=== PATIENT | male | born 1945 | race Caucasian/White ===

== ENCOUNTER 2023-01-10 09:41 | Inpatient (IN) | payer MEDICARE, BC ==
[~2023-01-10] VITALS: Ht 167.6 cm; Wt 64.3 kg
[2023-01-10 10:50] LABS: Urine Bacteria NONE SEEN /hpf (None Seen); Urine Blood Negative /uL (Negative); Urine Hyaline Cast FEW /lpf (0 - 2); Urine Specific Gravity 1.012 (1.001-1.035); Urine WBC 4 /hpf (0 - 3)
[2023-01-10 10:55] LABS: Basophils # (auto) 0.1 10 ^3/uL (0-0.2); Basophils % (auto) 1.2 % (0.0-2.0); Eosinophils # (auto) 0.1 10 ^3/uL (0-0.8); Eosinophils % (auto) 1.7 % (0.0-7.0); Hematocrit 27.5 % (41.0-53.0); Hemoglobin 8.1 g/dL (13.5-17.5); Lymphocytes # (auto) 0.7 10 ^3/uL (0.4-5.4); Lymphocytes % (auto) 9.3 % (10.0-50.0); Mean Corpuscular Hemoglobin 19.5 pg (28.0-32.0); Mean Corpuscular Hgb Conc. 29.5 g/dL (32.0-36.0); Mean Corpuscular Volume 66.1 fL (80.0-100.0); Monocytes # (auto) 0.7 10 ^3/uL (0-1.3); Monocytes % (auto) 9.7 % (0.0-12.0); Neutrophils # (auto) 5.9 10 ^3/uL (1.6-8.6); Neutrophils % (auto) 78.1 % (37.0-80.0); Red Blood Cells 4.15 10^6/uL (4.5-5.90); White Blood Cell 7.5 10^3/uL (4.4-10.8)
[2023-01-10] MEDS ORDERED: FUROSEMIDE 20 MG/2 ML VIAL IV ONE ×2 (11:00→11:15)
[2023-01-10 11:06] LABS: INR 1.18 (0.9-1.15)
[2023-01-10 11:14] LABS: Potassium 4.2 mmol/L (3.5-5.1)
[2023-01-10] MEDS ORDERED: AZITHROMYCIN 500MG/ 250ML 250 ML IV ONE (11:15)
[2023-01-10] MEDS ORDERED: MORPHINE SULFATE INJ 2 MG/ml SYRG IV PRN (11:15)
[2023-01-10] MEDS ORDERED: NITROGLYCERIN 0.4 MG SL TAB SL PRN (11:15)
[2023-01-10] MEDS ORDERED: cefTRIAXone 1GM/50ML D5W 50 ML IV ONE (11:15)
[2023-01-10 11:20] LABS: Albumin 2.8 g/dL (3.4-5.0); BUN/Creatinine Ratio 16.4 (10.0-20.0); Bilirubin, Total 0.6 mg/dL (0.2-1.0); Calcium 8.8 mg/dL (8.5-10.1); Magnesium 1.9 mg/dL (1.6-2.6); Total Protein 6.8 g/dL (6.4-8.2)
[2023-01-10 12:12] LABS: Cholesterol 121 mg/dL (< 200)
[2023-01-10 12:15] LABS: HDL Cholesterol 49 mg/dL (40-59); LDL Cholesterol 73 mg/dL (< 100); Triglycerides 59 mg/dL (< 150)
[2023-01-10] MEDS ORDERED: ASPirin 325 MG TAB PO ONE (13:30)
[2023-01-10 14:02] LABS: % Iron Saturation 3.3 % (20-55)
[2023-01-10 14:04] LABS: Folate (Folic Acid) 23.21 ng/mL (5.38-24)
[2023-01-10] MEDS ORDERED: hydrALAZINE HCL 20 MG/ML VL IV PRN (17:00)
[2023-01-10] MEDS: DOBUTamine 1000MCG/ML 250 ML IV SCH (17:19)
[2023-01-10] MEDS: FUROSEMIDE 20 MG/2 ML VIAL IV SCH (18:16)
[2023-01-10] MEDS: CARVEDILOL 3.125 MG TAB PO SCH (22:20)
[2023-01-10] MEDS: SACUBITRIL-VALSARTAN 24mg/26mg TAB PO SCH (22:20)
[2023-01-10] MEDS ORDERED: TEMAZEPAM 15 MG CAP PO ONE (23:15)
[2023-01-11] MEDS: ACETAMINOPHEN 325 MG TAB PO PRN ×2 (05:09→14:20)
[2023-01-11] MEDS: FUROSEMIDE 20 MG/2 ML VIAL IV SCH ×2 (05:37→18:50)
[2023-01-11 05:43] LABS: Basophils # (auto) 0.1 10 ^3/uL (0-0.2); Eosinophils # (auto) 0.2 10 ^3/uL (0-0.8); Hemoglobin 8.1 g/dL (13.5-17.5); Lymphocytes # (auto) 0.8 10 ^3/uL (0.4-5.4); Mean Corpuscular Hemoglobin 19.6 pg (28.0-32.0); Monocytes # (auto) 0.7 10 ^3/uL (0-1.3); Nucleated Red Blood Cells % 0.1 %
[2023-01-11 05:46] LABS: Basophils % (auto) 1.1 % (0.0-2.0); Eosinophils % (auto) 2.8 % (0.0-7.0); Hematocrit 26.5 % (41.0-53.0); Mean Corpuscular Hgb Conc. 30.6 g/dL (32.0-36.0); Mean Corpuscular Volume 64.2 fL (80.0-100.0); Monocytes % (auto) 10.5 % (0.0-12.0); Neutrophils # (auto) 4.9 10 ^3/uL (1.6-8.6); Neutrophils % (auto) 73.6 % (37.0-80.0); Red Blood Cells 4.13 10^6/uL (4.5-5.90); Red Cell Distribution Width 18.2 % (11.8-14.3); White Blood Cell 6.6 10^3/uL (4.4-10.8)
[2023-01-11] MEDS: EMPAGLIFLOZIN 10 MG TAB PO SCH (06:50)
[2023-01-11] MEDS ORDERED: cefTRIAXone 1GM/50ML D5W 50 ML IV SCH (09:00)
[2023-01-11] MEDS ORDERED: FUROSEMIDE 20 MG/2 ML VIAL IV SCH (10:00)
[2023-01-11] MEDS ORDERED: ENOXAPARIN SOD 40 MG/0.4 ML SYRINGE SC SCH (10:00)
[2023-01-11] MEDS ORDERED: AZITHROMYCIN 500MG/ 250ML 250 ML IV SCH (10:00)
[2023-01-11] MEDS: ASPirin 81 mg TAB PO SCH (10:25)
[2023-01-11] MEDS: SACUBITRIL-VALSARTAN 24mg/26mg TAB PO SCH ×2 (10:26→23:17)
[2023-01-11] MEDS: CARVEDILOL 3.125 MG TAB PO SCH ×2 (10:26→23:16)
[2023-01-11 12:44] LABS: Calcium 8.6 mg/dL (8.5-10.1); Potassium 3.7 mmol/L (3.5-5.1)
[2023-01-11 12:47] LABS: BUN/Creatinine Ratio 15.3 (10.0-20.0)
[2023-01-11] MEDS: DOBUTamine 1000MCG/ML 250 ML IV SCH (16:47)
[2023-01-11] MEDS ORDERED: DOXYCYCLINE 100 MG TAB/CAP PO SCH (22:00)
[2023-01-11] MEDS ORDERED: TEMAZEPAM 15 MG CAP PO ONE (23:15)
[2023-01-11 23:51] VITALS: BP 129/62
[2023-01-12] VITALS (11 sets, daily range): BP systolic 99–128; BP diastolic 41–97
[2023-01-12 06:18] LABS: Hematocrit 23.9 % (41.0-53.0); Nucleated Red Blood Cells % 0.1 %; White Blood Cell 5.9 10^3/uL (4.4-10.8)
[2023-01-12 06:21] LABS: Basophils # (auto) 0.1 10 ^3/uL (0-0.2); Basophils % (auto) 1.3 % (0.0-2.0); Eosinophils # (auto) 0.4 10 ^3/uL (0-0.8); Eosinophils % (auto) 5.9 % (0.0-7.0); Hemoglobin 7.8 g/dL (13.5-17.5); Lymphocytes # (auto) 0.8 10 ^3/uL (0.4-5.4); Lymphocytes % (auto) 12.9 % (10.0-50.0); Mean Corpuscular Hemoglobin 20.9 pg (28.0-32.0); Mean Corpuscular Hgb Conc. 32.5 g/dL (32.0-36.0); Mean Corpuscular Volume 64.2 fL (80.0-100.0); Monocytes # (auto) 0.8 10 ^3/uL (0-1.3); Monocytes % (auto) 14.4 % (0.0-12.0); Neutrophils # (auto) 3.9 10 ^3/uL (1.6-8.6); Neutrophils % (auto) 65.5 % (37.0-80.0); Red Blood Cells 3.72 10^6/uL (4.5-5.90); Red Cell Distribution Width 18.1 % (11.8-14.3)
[2023-01-12 06:22] LABS: INR 1.13 (0.9-1.15); Partial Thromboplastin Time 31.8 sec (24.6-33.4)
[2023-01-12 06:35] LABS: BUN/Creatinine Ratio 18.3 (10.0-20.0); Calcium 8.2 mg/dL (8.5-10.1); Potassium 3.3 mmol/L (3.5-5.1)
[2023-01-12] MEDS: EMPAGLIFLOZIN 10 MG TAB PO SCH (06:38)
[2023-01-12] MEDS: FUROSEMIDE 20 MG/2 ML VIAL IV SCH (06:38)
[2023-01-12] MEDS ORDERED: POTASSIUM EFFERVESENT TAB 25 MEQ PO ONE (10:00)
[2023-01-12] MEDS: ASPirin 81 mg TAB PO SCH (10:35)
[2023-01-12] MEDS ORDERED: HEPARIN SODIUM (PORCINE) 5000 UNITS/ML 1ML VIAL ONE (11:53)
[2023-01-12] MEDS ORDERED: VERAPAMIL 2.5MG/ML INJ 2ML VIAL IV ONE (11:53)
[2023-01-12] MEDS ORDERED: ANGIOMAX 250 MG VIAL IV ONE (11:53)
[2023-01-12] MEDS ORDERED: SODIUM CHL 0.9% 0 ML ONE (11:54)
[2023-01-12] MEDS ORDERED: MIDAZOLAM HCL 2MG/2ML 2ml VIAL (1mg/ml) ONE (11:54)
[2023-01-12] MEDS ORDERED: fentaNYL CITRATE 100 MCG/2 ML VL ONE (11:54)
[2023-01-12] MEDS ORDERED: LIDOCAINE 2%HCL (LOCAL ANESTH.) INJ 10ml MDV ONE (11:56)
[2023-01-12] MEDS ORDERED: IODIXANOL 320MG/ML 100ML BTL IV ONE (11:57)
[2023-01-12] MEDS ORDERED: PIPERACILLIN-TAZOB 3.375GM 100 ML IV SCH ×2 (14:00→17:00)
[2023-01-12] MEDS ORDERED: HEPARIN SODIUM (PORCINE) 5000 UNITS/ML 1ML VIAL IV ONE (17:00)
[2023-01-12] MEDS ORDERED: HEPARIN DRIP/D5W 100UNITS/ML 250 ML IV SCH ×2 (17:00→18:45)
[2023-01-12] MEDS: DOBUTamine 1000MCG/ML 250 ML IV SCH (17:36)
[2023-01-12] MEDS ORDERED: FUROSEMIDE 40 MG/4 ML VIAL IV SCH (18:00)
[2023-01-12 18:23] LABS: Basophils # (auto) 0 10 ^3/uL (0-0.2); Basophils % (auto) 0.3 % (0.0-2.0); Eosinophils # (auto) 0.2 10 ^3/uL (0-0.8); Hematocrit 25.4 % (41.0-53.0); Hemoglobin 7.6 g/dL (13.5-17.5); Monocytes # (auto) 0.9 10 ^3/uL (0-1.3); Monocytes % (auto) 15.3 % (0.0-12.0); Neutrophils # (auto) 3.7 10 ^3/uL (1.6-8.6); Neutrophils % (auto) 65.5 % (37.0-80.0); Nucleated Red Blood Cells % 0.1 %
[2023-01-12 18:24] LABS: Lymphocytes # (auto) 0.8 10 ^3/uL (0.4-5.4); Lymphocytes % (auto) 14.9 % (10.0-50.0); Mean Corpuscular Hemoglobin 19.5 pg (28.0-32.0); Mean Corpuscular Hgb Conc. 30.1 g/dL (32.0-36.0); Mean Corpuscular Volume 64.7 fL (80.0-100.0); Red Blood Cells 3.92 10^6/uL (4.5-5.90); Red Cell Distribution Width 18.1 % (11.8-14.3); White Blood Cell 5.6 10^3/uL (4.4-10.8)
[2023-01-12 18:40] LABS: INR 1.14 (0.9-1.15); Partial Thromboplastin Time 29.2 sec (24.6-33.4)
[2023-01-12] MEDS ORDERED: ATORVASTATIN 20 MG TAB PO SCH (22:00)
== END 2023-01-12 21:40 | disposition short-term general hospital (02) | DRG 280 ==
LOC: ER 09:41 → TELE 11:17 → TELE-EAST 01-11 22:20
PROVIDERS: ADMIT Nurse Practitioner Family; ATTEND Nurse Practitioner Acute Care
PROC: 4A023N7 Measurement of Cardiac Sampling and Pressure, Left Heart, Percutaneous Approach (ICD-10-PCS; principal; 2023-01-12)
PROC: B211YZZ Fluoroscopy of Multiple Coronary Arteries using Other Contrast (ICD-10-PCS; 2023-01-12)
PROC: B215YZZ Fluoroscopy of Left Heart using Other Contrast (ICD-10-PCS; 2023-01-12)
DX: I21.4 Non-ST elevation (NSTEMI) myocardial infarction (principal); I50.41 Acute combined systolic (congestive) and diastolic (congestive) heart failure; J18.9 Pneumonia, unspecified organism; J96.01 Acute respiratory failure with hypoxia; I42.6 Alcoholic cardiomyopathy; I25.10 Atherosclerotic heart disease of native coronary artery without angina pectoris; D50.9 Iron deficiency anemia, unspecified; I11.0 Hypertensive heart disease with heart failure; I27.20 Pulmonary hypertension, unspecified; R73.03 Prediabetes; D63.8 Anemia in other chronic diseases classified elsewhere; F10.10 Alcohol abuse, uncomplicated; F17.200 Nicotine dependence, unspecified, uncomplicated; I50.82 Biventricular heart failure; Z82.49 Family history of ischemic heart disease and other diseases of the circulatory system; Z20.822 Contact with and (suspected) exposure to COVID-19
CPT/HCPCS: 36415; 71045; 80048; 80053; 80061; 81001; 82607; 82746; 83036; 83540; 83550; 83735; 83880; 84443; 84484; 85025; 85610; 85730; 87426; 87804; 93005; 93306; 93458; 97110; 97116; 97163; 99291; G0378; J0696; J2001; J2250; J2543; Q9967

== ENCOUNTER 2024-03-29 07:28 | Inpatient (IN) | payer MEDICARE, BC ==
[~2024-03-29] VITALS: Ht 170.2 cm; Wt 48.7 kg
[2024-03-29] VITALS (14 sets, daily range): BP systolic 96–132; BP diastolic 48–94; PULSE 82–107; RESP 14–30; TEMP 94.5–98.1
[2024-03-29] MEDS: DEXTROSE 50% SYRINGE 50 ML IV ONE (07:43)
[2024-03-29] MEDS: DEXTROSE (50%) 50ML SYRG IV ONE (07:45)
[2024-03-29] MEDS: SODIUM CHLORIDE 0.9% 2,000 ML IV ONE (08:18)
[2024-03-29 09:02] LABS: Basophils # (auto) 0 10 ^3/uL (0-0.2); Basophils % (auto) 0.1 % (0.0-2.0); Eosinophils # (auto) 0 10 ^3/uL (0-0.8); Monocytes # (auto) 0 10 ^3/uL (0-1.3); Nucleated Red Blood Cells % 0.1 %
[2024-03-29 09:04] LABS: Eosinophils % (auto) 0.7 % (0.0-7.0); Hematocrit 12.9 % (41.0-53.0); Lymphocytes # (auto) 0 10 ^3/uL (0.4-5.4); Mean Corpuscular Hemoglobin 18.6 pg (28.0-32.0); Mean Corpuscular Hgb Conc. 28.2 g/dL (32.0-36.0); Mean Corpuscular Volume 65.9 fL (80.0-100.0); Monocytes % (auto) 0.2 % (0.0-12.0); Neutrophils # (auto) 4.5 10 ^3/uL (1.6-8.6); Red Blood Cells 1.95 10^6/uL (4.5-5.90); White Blood Cell 4.6 10^3/uL (4.4-10.8)
[2024-03-29 09:07] LABS: Hemoglobin 3.6 g/dL (13.5-17.5); Red Cell Distribution Width 26.1 % (11.8-14.3)
[2024-03-29 09:20] LABS: Alanine Aminotransferase 25 U/L (7-40); Albumin 2.6 g/dL (3.2-4.8); Alkaline Phosphatase 154 U/L (46-116); Anion Gap 19.00001 (5-15); Aspartate Aminotransferase 112 U/L (13-40); BUN/Creatinine Ratio 19.3 (10.0-20.0); Chloride 106 mmol/L (98-107); Glucose 368 mg/dL (74-106); Magnesium 1.9 mg/dL (1.6-2.6); Potassium 4.5 mmol/L (3.5-5.1); Sodium 135 mmol/L (136-145); Total Protein 5.3 g/dL (5.7-8.2)
[2024-03-29 09:21] LABS: Bilirubin, Total 0.4 mg/dL (0.2-1.0)
[2024-03-29 09:24] LABS: Ovalocytes FEW
[2024-03-29 09:25] LABS: Anisocytosis Moderate; Blood Urea Nitrogen 89 mg/dL (9-23); Carbon Dioxide < 10 mmol/L (20-30); Hypochromia Marked; Lactic Acid w/Reflex 4.1 mmol/L (0.4-2.0); Platelet Estimate Decreased; Tear Drop Cells FEW
[2024-03-29] MEDS: cefTRIAXone 1GM/50ML D5W 50 ML IV ONE (09:54)
[2024-03-29] MEDS: DOPamine 1600MCG/ML D5W 250 ML IV SCH (10:55)
[2024-03-29] MEDS: DOPamine 1600MCG/ML D5W 250 ML IV ONE (10:59)
[2024-03-29] MEDS: NOREPINEPHRINE 8 MG/250ML KIT 250 ML IV SCH (11:30)
[2024-03-29] MEDS: NOREPINEPHRINE 8 MG/250ML KIT 250 ML IV ONE (11:39)
[2024-03-29] MEDS ORDERED: INSULIN LANTUS (GLARGINE) 1 /0.01ml (100units/ml) SC ONE (13:15)
[2024-03-29] MEDS: ACCU-CHEK COMFORT CURVE STRIP VI SCH (13:30)
[2024-03-29 13:39] LABS: Base Excess -18.6 mmol/L (-2.0-2.0)
[2024-03-29] MEDS: INSULIN DRIP 100 UNIT/100ML 100 ML IV SCH (14:07)
[2024-03-29 14:14] LABS: Red Blood Cells 2.83 10^6/uL (4.5-5.90)
[2024-03-29 14:15] LABS: Hematocrit 21.8 % (41.0-53.0); Mean Corpuscular Hemoglobin 22.8 pg (28.0-32.0); Mean Corpuscular Hgb Conc. 29.6 g/dL (32.0-36.0); White Blood Cell 13.2 10^3/uL (4.4-10.8)
[2024-03-29 14:18] LABS: Red Cell Distribution Width 31.1 % (11.8-14.3)
[2024-03-29 14:20] LABS: Hemoglobin 6.5 g/dL (13.5-17.5)
[2024-03-29 14:23] LABS: Basophils % (manual) 0 (0.0-2.0); Blast Cells 0; Eosinophils % (manual) 0 (0-7); Metamyelocytes % 0; Myelocytes % 0; Promyelocytes % 0; Reactive Lymphocytes 0
[2024-03-29 14:38] LABS: BUN/Creatinine Ratio 20.6 (10.0-20.0)
[2024-03-29 14:39] LABS: Magnesium 1.8 mg/dL (1.6-2.6)
[2024-03-29 14:40] LABS: Band Neutrophils % (manual) 4; Lymphocytes % (manual) 2 (10.0-50.0); Monocytes % (manual) 1 (0-12); Phosphorus 9.2 mg/dL (2.4-5.1)
[2024-03-29 14:41] LABS: Anisocytosis Moderate
[2024-03-29 14:42] LABS: Hypochromia Moderate; Platelet Estimate Adequate; Tear Drop Cells FEW
[2024-03-29] MEDS: DEXTROSE 10% 1,000 ML IV ONE ×2 (14:45→15:03)
[2024-03-29] MEDS: FUROSEMIDE 20 MG/2 ML VIAL IV ONE (15:14)
[2024-03-29] MEDS: PIPERACILLIN-TAZOB 3.375GM 100 ML IV ONE (15:14)
[2024-03-29 15:18] LABS: Chloride 113 mmol/L (98-107); Sodium 142 mmol/L (136-145)
[2024-03-29 15:19] LABS: Anion Gap 19.00001 (5-15); Blood Urea Nitrogen 91 mg/dL (9-23); Calcium 6.9 mg/dL (8.5-10.1); Carbon Dioxide < 10 mmol/L (20-30); Glucose 23 mg/dL (74-106)
[2024-03-29] MEDS ORDERED: VANCOMYCIN PER PHARMACY 0 MG IV SCH (15:30)
[2024-03-29] MEDS ORDERED: MORPHINE SULFATE INJ 2 MG/ml SYRG IV PRN (15:45)
[2024-03-29] MEDS ORDERED: NITROGLYCERIN 0.4 MG SL TAB SL PRN (15:45)
[2024-03-29 16:15] LABS: % Iron Saturation 5.9 % (20-55)
[2024-03-29] MEDS: PANTOPRAZOLE 40 MG/10 ML VIAL INJ IV ONE (16:41)
[2024-03-29] MEDS: SODIUM BICARB 8.4% 50Meq/50ml SYR Vial IV ONE ×2 (16:41→17:26)
[2024-03-29] MEDS: SODIUM BICARB 50mEq/50ml Vial 150 ML in D5W 5% 1,000 ML IV SCH (16:45)
[2024-03-29] MEDS: SODIUM CHLORIDE 0.9% 1,000 ML IV SCH ×2 (16:53→17:15)
[2024-03-29] MEDS: SOD CHL 0.45% 1,000 ML IV SCH ×2 (17:23)
[2024-03-29] MEDS: VANCOMYCIN 750mg/150ml 150 ML IV ONE (17:29)
[2024-03-29] MEDS: VASOPRESSIN 20 UNITS in SODIUM CHL 0.9% 99 ML IV SCH (17:33)
[2024-03-29] MEDS: DEXTROSE (50%) 50ML SYRG IV PRN (18:02)
[2024-03-29 18:09] LABS: Urine Bacteria None Seen /hpf (None Seen); Urine WBC None Seen /hpf (0 - 3)
[2024-03-29] MEDS: CEFEPIME 1GM/ 50ML 50 ML IV ONE (18:40)
[2024-03-29 18:48] LABS: Urine Blood 1+ /uL (Negative); Urine Clarity Ex.Turbid (Clear); Urine Color Dark-Brown (Yellow); Urine Protein, UAD 2+ (Negative); Urine Specific Gravity 1.014 (1.001-1.035); Urine Urobilinogen Normal (Negative); Urine pH 7.5 (5.0-9.0)
[2024-03-29] MEDS ORDERED: SODIUM CHLORIDE 0.9% 1,000 ML IV SCH (19:15)
[2024-03-29 21:21] LABS: Chloride 114 mmol/L (98-107); Potassium 5.4 mmol/L (3.5-5.1); Sodium 143 mmol/L (136-145)
[2024-03-29 21:23] LABS: Anion Gap 19.00001 (5-15)
[2024-03-29 21:24] LABS: Calcium 6.8 mg/dL (8.7-10.4)
[2024-03-29 21:27] LABS: Carbon Dioxide < 10 mmol/L (20-30)
[2024-03-29 21:29] LABS: BUN/Creatinine Ratio 19.1 (10.0-20.0); Glucose 99 mg/dL (74-106)
[2024-03-29 21:32] LABS: Blood Urea Nitrogen 85 mg/dL (9-23)
[2024-03-30] VITALS (29 sets, daily range): BP systolic 83–136; BP diastolic 45–82; PULSE 78–102; RESP 17–29; TEMP 94.6–98.2; O2SAT 61–98
[2024-03-30 00:39] LABS: Hematocrit 31.8 % (41.0-53.0); Hemoglobin 9.4 g/dL (13.5-17.5)
[2024-03-30 01:01] LABS: Lactic Acid w/Reflex 12.4 mmol/L (0.4-2.0)
[2024-03-30 01:29] LABS: Anion Gap 20.00001 (5-15); Chloride 113 mmol/L (98-107); Sodium 143 mmol/L (136-145)
[2024-03-30 01:30] LABS: Calcium 6.8 mg/dL (8.7-10.4)
[2024-03-30 01:35] LABS: BUN/Creatinine Ratio 15.4 (10.0-20.0); Glucose 117 mg/dL (74-106)
[2024-03-30 01:36] LABS: Blood Urea Nitrogen 69 mg/dL (9-23)
[2024-03-30 01:37] LABS: Carbon Dioxide < 10 mmol/L (20-30); Potassium 5.9 mmol/L (3.5-5.1)
[2024-03-30] MEDS: SODIUM BICARB 8.4% 50Meq/50ml SYR Vial IV ONE ×2 (01:44→04:46)
[2024-03-30] MEDS: VASOPRESSIN 20 UNIT/ML ONE (02:42)
[2024-03-30] MEDS: LACTATED RINGER'S 1,000 ML IV ONE (04:03)
[2024-03-30] MEDS: DEXTROSE 10% 1,000 ML IV ONE (04:46)
[2024-03-30 07:43] LABS: Hematocrit 30.7 % (41.0-53.0); Hemoglobin 9.2 g/dL (13.5-17.5); Mean Corpuscular Hemoglobin 24.3 pg (28.0-32.0); Mean Corpuscular Hgb Conc. 29.9 g/dL (32.0-36.0); Mean Corpuscular Volume 81.2 fL (80.0-100.0); Red Blood Cells 3.78 10^6/uL (4.5-5.90); Red Cell Distribution Width 24.4 % (11.8-14.3); White Blood Cell 29.4 10^3/uL (4.4-10.8)
[2024-03-30 07:47] LABS: Basophils % (manual) 0 (0.0-2.0); Blast Cells 0; Metamyelocytes % 0; Myelocytes % 0; Promyelocytes % 0; Reactive Lymphocytes 0
[2024-03-30 07:56] LABS: Band Neutrophils % (manual) 12; Eosinophils % (manual) 2 (0-7); Lymphocytes % (manual) 2 (10.0-50.0); Monocytes % (manual) 5 (0-12)
[2024-03-30 07:59] LABS: Anisocytosis Moderate; Hypochromia Moderate; Platelet Estimate Decreased; Tear Drop Cells FEW
[2024-03-30 08:01] LABS: Alanine Aminotransferase 110 U/L (7-40); Alkaline Phosphatase 570 U/L (46-116); Anion Gap 26 (5-15); Aspartate Aminotransferase 663 U/L (13-40); Calcium 6.5 mg/dL (8.5-10.1); Carbon Dioxide 10 mmol/L (20-30); Chloride 108 mmol/L (98-107); Glucose 89 mg/dL (74-106); Sodium 144 mmol/L (136-145)
[2024-03-30 08:02] LABS: Albumin 2.4 g/dL (3.2-4.8); Bilirubin, Total 1.6 mg/dL (0.2-1.0); Total Protein 4.9 g/dL (5.7-8.2)
[2024-03-30 08:24] LABS: Blood Urea Nitrogen 94 mg/dL (9-23); Potassium 5.9 mmol/L (3.5-5.1)
[2024-03-30] MEDS: BUMETANIDE INJECTION 12.5 MG in GIVE UN-DILUTED 0 ML IV SCH (08:45)
[2024-03-30] MEDS: InsuLIN REG 1unit/0.01ml Soln (100units/ml) IV ONE ×2 (08:45→13:30)
[2024-03-30] MEDS: SODIUM BICARB 8.4% 50Meq/50ml SYR INJ IV ONE (08:45)
[2024-03-30] MEDS: SODIUM ZIRCONIUM CYCL 10 GM PAK PO ONE ×3 (09:01→20:12)
[2024-03-30] MEDS: FUROSEMIDE 20 MG/2 ML VIAL IV ONE (09:15)
[2024-03-30] MEDS: CALCIUM GLUC 1,000mg/50ml-NS 50 ML IV ONE ×2 (09:15→20:12)
[2024-03-30] MEDS: ALBUTEROL SULF 2.5 MG/0.5ML(0.5%) NEB SOLN NEB ONE ×3 (09:17→17:52)
[2024-03-30 09:27] LABS: Base Excess -21.5 mmol/L (-2.0-2.0)
[2024-03-30] MEDS: DEXTROSE (50%) 50ML SYRG IV ONE ×3 (09:31→17:59)
[2024-03-30] MEDS ORDERED: INSULIN LANTUS (GLARGINE) 1 /0.01ml (100units/ml) SC SCH (10:00)
[2024-03-30] MEDS: PANTOPRAZOLE 40 MG/10 ML VIAL INJ IV SCH (10:07)
[2024-03-30] MEDS: ENOXAPARIN SOD 30 MG/0.3 ML SYRINGE SC SCH (10:08)
[2024-03-30] MEDS: SODIUM BICARB 50mEq/50ml Vial 150 ML in D5W 5% 1,000 ML IV SCH (10:19)
[2024-03-30 11:02] LABS: Hematocrit 29.4 % (41.0-53.0); Hemoglobin 8.9 g/dL (13.5-17.5)
[2024-03-30 11:10] LABS: Anion Gap 26 (5-15); Carbon Dioxide 11 mmol/L (20-30); Chloride 106 mmol/L (98-107); Sodium 143 mmol/L (136-145)
[2024-03-30 11:11] LABS: Calcium 7.2 mg/dL (8.5-10.1)
[2024-03-30 11:16] LABS: BUN/Creatinine Ratio 20.2 (10.0-20.0)
[2024-03-30 11:34] LABS: Lactic Acid w/Reflex 15.4 mmol/L (0.4-2.0)
[2024-03-30 11:35] LABS: Blood Urea Nitrogen 92 mg/dL (9-23); Glucose 268 mg/dL (74-106); Potassium 6.5 mmol/L (3.5-5.1)
[2024-03-30] MEDS: CEFEPIME 1GM/ 50ML 50 ML IV SCH (11:58)
[2024-03-30] MEDS: ROCURONIUM 10MG/ML 10ML VIAL IV ONE (12:27)
[2024-03-30] MEDS: ETOMIDATE (2MG/ML) 20ML VIAL IV ONE (12:27)
[2024-03-30] MEDS: MIDAZOLAM DRIP 50 mg/50mL 50 ML IV SCH (12:34)
[2024-03-30] MEDS: MIDAZOLAM DRIP 50 mg/50mL 50 ML IV ONE (12:51)
[2024-03-30] MEDS ORDERED: Jevity 1.2 Cal/Fiber 1 Liter GT SCH (13:30)
[2024-03-30] MEDS: VANCOMYCIN 500 MG in D5W 5% 100 ML IV ONE (13:31)
[2024-03-30 15:09] LABS: Base Excess -21.5 mmol/L (-2.0-2.0)
[2024-03-30 18:15] LABS: Hemoglobin 7.5 g/dL (13.5-17.5)
[2024-03-30 18:17] LABS: Hematocrit 25.3 % (41.0-53.0)
[2024-03-30 18:25] LABS: Lactic Acid w/Reflex 14.5 mmol/L (0.4-2.0)
[2024-03-30] MEDS: NOREPINEPHRINE BITARTRATE 32 MG in SODIUM CHL 0.9% 218 ML IV SCH (19:30)
[2024-03-30] MEDS: NOREPINEPHRINE BITARTRATE 4 ML IV ONE (20:07)
[2024-03-30] MEDS: fentaNYL Drip 2500mCg/250mlNS 250 ML IV SCH (20:26)
[2024-03-30] MEDS: NOREPINEPHRINE 8 MG/250ML KIT 250 ML IV ONE (20:40)
[2024-03-30] MEDS: SODIUM ZIRCONIUM CYCL 10 GM PAK PO SCH (22:12)
[2024-03-31] VITALS (107 sets, daily range): BP systolic 76–155; BP diastolic 43–84; PULSE 88–140; RESP 16–30; TEMP 95.7–100.6; O2SAT 0–63
[2024-03-31 02:32] LABS: Base Excess -18.2 mmol/L (-2.0-2.0)
[2024-03-31] MEDS: PHENYLEPHRINE IV 250 ML IV SCH (04:19)
[2024-03-31 05:01] LABS: Alanine Aminotransferase 475 U/L (7-40); Albumin 1.9 g/dL (3.2-4.8); Alkaline Phosphatase 451 U/L (46-116); Anion Gap 25.00001 (5-15); BUN/Creatinine Ratio 16.6 (10.0-20.0); Bilirubin, Total 1.3 mg/dL (0.2-1.0); Calcium 6.4 mg/dL (8.7-10.4); Chloride 105 mmol/L (98-107); Glucose 214 mg/dL (74-106); Magnesium 2.2 mg/dL (1.6-2.6); Phosphorus 12.3 mg/dL (2.4-5.1); Sodium 140 mmol/L (136-145); Total Protein 4.3 g/dL (5.7-8.2)
[2024-03-31] MEDS: PHENYLEPHRINE HCL 10 MG/ML VL ONE ×2 (05:08)
[2024-03-31] MEDS: PHENYLEPHRINE INJ 80 MG in SODIUM CHL 0.9% 242 ML IV SCH (05:08)
[2024-03-31 05:12] LABS: Aspartate Aminotransferase 3449 U/L (13-40)
[2024-03-31 05:13] LABS: Hematocrit 31.9 % (41.0-53.0)
[2024-03-31 05:14] LABS: Hemoglobin 9.5 g/dL (13.5-17.5); Mean Corpuscular Hemoglobin 25.4 pg (28.0-32.0); Mean Corpuscular Hgb Conc. 29.8 g/dL (32.0-36.0); Mean Corpuscular Volume 85.4 fL (80.0-100.0); Red Blood Cells 3.73 10^6/uL (4.5-5.90)
[2024-03-31 05:24] LABS: Red Cell Distribution Width 23.6 % (11.8-14.3); White Blood Cell 40.6 10^3/uL (4.4-10.8)
[2024-03-31 05:25] LABS: Blood Urea Nitrogen 73 mg/dL (9-23); Carbon Dioxide < 10 mmol/L (20-30); Potassium 5.7 mmol/L (3.5-5.1)
[2024-03-31 05:26] LABS: Basophils % (manual) 0 (0.0-2.0); Blast Cells 0; Eosinophils % (manual) 0 (0-7); Promyelocytes % 0; Reactive Lymphocytes 0
[2024-03-31 05:48] LABS: Band Neutrophils % (manual) 21; Lymphocytes % (manual) 2 (10.0-50.0); Metamyelocytes % 5; Monocytes % (manual) 3 (0-12); Myelocytes % 3; Platelet Estimate Decreased
[2024-03-31 05:49] LABS: Anisocytosis Slight; Hypochromia Slight
[2024-03-31 05:50] LABS: Large Platelets FEW; Ovalocytes FEW
[2024-03-31 07:01] LABS: Base Excess -18.3 mmol/L (-2.0-2.0)
[2024-03-31] MEDS: ALBUTEROL SULF 2.5 MG/0.5ML(0.5%) NEB SOLN NEB ONE ×2 (08:50→21:45)
[2024-03-31] MEDS: HYDROCORTISONE SOD SUCC 100 MG/2ML INJ VIAL IV ONE (09:06)
[2024-03-31] MEDS: MEROPENEM 1GM IVPB 50 ML IV ONE (09:07)
[2024-03-31] MEDS: SODIUM BICARB 8.4% 50Meq/50ml SYR INJ IV ONE ×2 (09:08→22:42)
[2024-03-31 09:44] LABS: INR 2.42 (0.9-1.15)
[2024-03-31 10:00] LABS: Partial Thromboplastin Time 75.3 SEC (24.5-34.5)
[2024-03-31] MEDS: DOPamine 1600MCG/ML D5W 250 ML IV SCH (10:00)
[2024-03-31] MEDS: MEROPENEM 500MG IVPB 50 ML IV SCH (10:00)
[2024-03-31 11:31] LABS: Hepatitis B Surface Antigen Negative (Negative)
[2024-03-31 11:40] LABS: Lactic Acid w/Reflex 18.9 mmol/L (0.4-2.0)
[2024-03-31 11:52] LABS: Hepatitis A Ab IgM Negative
[2024-03-31 11:53] LABS: Hepatitis B Core IgM Negative; Hepatitis C Antibody Negative (Negative)
[2024-03-31] MEDS: SODIUM BICARB 8.4% 50Meq/50ml SYR Vial IV ONE (12:23)
[2024-03-31] MEDS: PANTOPRAZOLE 80 MG in SODIUM CHL 0.9% 100 ML IV ONE (12:35)
[2024-03-31] MEDS: PANTOPRAZOLE 40mg/50ML NS AE 50 ML IV SCH (12:35)
[2024-03-31] MEDS ORDERED: DEXTROSE 10% 1,000 ML IV SCH (12:45)
[2024-03-31] MEDS: DEXTROSE 10% 1,000 ML IV ONE (13:11)
[2024-03-31 15:30] LABS: Free T3 1.33 pg/mL (2.3-4.2)
[2024-03-31 15:31] LABS: Free T4 (Free Thyroxine) 0.4 ng/dL (0.89-1.76)
[2024-03-31] MEDS: SODIUM BICARB 50mEq/50ml Vial 150 ML in D5W 5% 1,000 ML IV SCH (15:43)
[2024-03-31] MEDS: VANCOMYCIN 500 MG in D5W 5% 100 ML IV ONE (18:56)
[2024-03-31] MEDS ORDERED: TPN PER PHARMACY 0 ML IV SCH (20:00)
[2024-03-31] MEDS: PANTOPRAZOLE 40 MG/10 ML VIAL INJ IV ONE (20:38)
[2024-03-31 21:09] LABS: Chloride 97 mmol/L (98-107); Sodium 141 mmol/L (136-145)
[2024-03-31 21:10] LABS: Anion Gap 32 (5-15); Carbon Dioxide 12 mmol/L (20-30)
[2024-03-31 21:15] LABS: Glucose 162 mg/dL (74-106)
[2024-03-31 21:28] LABS: Blood Urea Nitrogen 103 mg/dL (9-23)
[2024-03-31 21:29] LABS: Calcium 5.5 mg/dL (8.5-10.1)
[2024-03-31] MEDS: ALBUTEROL SULF 2.5 MG/0.5ML(0.5%) NEB SOLN ONE (21:52)
[2024-03-31] MEDS ORDERED: AMINO ACID INFUSION IN D10W 1,000 ML IV SCH (22:00)
[2024-03-31] MEDS ORDERED: DEXTROSE (50%) 50ML SYRG IV SCH (22:00)
[2024-03-31] MEDS ORDERED: HYDROCORTISONE SOD SUCC 100 MG/2ML INJ VIAL IV SCH (22:00)
[2024-03-31 22:19] LABS: Hematocrit 22.6 % (41.0-53.0); Mean Corpuscular Hemoglobin 24.6 pg (28.0-32.0); Mean Corpuscular Hgb Conc. 29.9 g/dL (32.0-36.0); Mean Corpuscular Volume 82.1 fL (80.0-100.0); Red Blood Cells 2.75 10^6/uL (4.5-5.90); White Blood Cell 29.4 10^3/uL (4.4-10.8)
[2024-03-31 22:22] LABS: Red Cell Distribution Width 24.7 % (11.8-14.3)
[2024-03-31 22:24] LABS: Hemoglobin 6.8 g/dL (13.5-17.5)
[2024-03-31 22:26] LABS: Basophils % (manual) 0 (0.0-2.0); Blast Cells 0; Eosinophils % (manual) 0 (0-7); Promyelocytes % 0
[2024-03-31] MEDS: HYDROCORTISONE SOD SUCC 100 MG/2ML INJ VIAL IV SCH (22:43)
[2024-03-31] MEDS: CALCIUM GLUC 1,000mg/50ml-NS 50 ML IV ONE (22:44)
[2024-03-31 23:17] LABS: Band Neutrophils % (manual) 18; Lymphocytes % (manual) 5 (10.0-50.0); Metamyelocytes % 3; Monocytes % (manual) 4 (0-12); Myelocytes % 2; Reactive Lymphocytes 1
[2024-03-31 23:18] LABS: Anisocytosis Moderate; Giant Platelets Few; Hypochromia Slight; Large Platelets FEW; Ovalocytes FEW; Platelet Estimate Markedly Decreased
[2024-03-31] MEDS: AMINO ACID INFUSION IN D10W 1,000 ML IV ONE (23:20)
[2024-04-01] VITALS (76 sets, daily range): BP systolic 51–153; BP diastolic 24–81; PULSE 88–102; RESP 0–33; TEMP 96.4–99.1; O2SAT 39–100
[2024-04-01] MEDS: InsuLIN REG 1unit/0.01ml Soln (100units/ml) SC SCH
[2024-04-01] MEDS: ACCU-CHEK COMFORT CURVE STRIP VI SCH (00:17)
[2024-04-01 07:11] LABS: Hematocrit 24.6 % (41.0-53.0); Red Blood Cells 2.93 10^6/uL (4.5-5.90)
[2024-04-01 07:12] LABS: Hemoglobin 7.8 g/dL (13.5-17.5); Mean Corpuscular Hemoglobin 26.7 pg (28.0-32.0); Mean Corpuscular Hgb Conc. 31.8 g/dL (32.0-36.0); Mean Corpuscular Volume 83.9 fL (80.0-100.0); White Blood Cell 27.3 10^3/uL (4.4-10.8)
[2024-04-01 07:19] LABS: Red Cell Distribution Width 22.1 % (11.8-14.3)
[2024-04-01 07:20] LABS: Basophils % (manual) 0 (0.0-2.0); Blast Cells 0; Eosinophils % (manual) 0 (0-7); Metamyelocytes % 0; Myelocytes % 0; Promyelocytes % 0; Reactive Lymphocytes 0
[2024-04-01 07:36] LABS: Alanine Aminotransferase 529 U/L (7-40); Albumin 1.6 g/dL (3.2-4.8); Alkaline Phosphatase 379 U/L (46-116); Anion Gap 35 (5-15); Aspartate Aminotransferase > 1000 U/L (13-40); BUN/Creatinine Ratio 23.7 (10.0-20.0); Carbon Dioxide 13 mmol/L (20-30); Chloride 93 mmol/L (98-107); Glucose 190 mg/dL (74-106); Sodium 141 mmol/L (136-145); Triglycerides 55 mg/dL (< 150)
[2024-04-01 07:37] LABS: Bilirubin, Total 2.1 mg/dL (0.2-1.0); Phosphorus 13.7 mg/dL (2.4-5.1); Total Protein 3.3 g/dL (5.7-8.2)
[2024-04-01 07:46] LABS: Blood Urea Nitrogen 97 mg/dL (9-23); Calcium 5.5 mg/dL (8.5-10.1)
[2024-04-01 07:47] LABS: Potassium 5.9 mmol/L (3.5-5.1)
[2024-04-01 08:29] LABS: Band Neutrophils % (manual) 21; Lymphocytes % (manual) 15 (10.0-50.0); Monocytes % (manual) 3 (0-12); Platelet Estimate Decreased
[2024-04-01 08:30] LABS: Ovalocytes FEW
[2024-04-01 09:12] LABS: Base Excess -11.8 mmol/L (-2.0-2.0)
[2024-04-01] MEDS: PANTOPRAZOLE 40 MG/10 ML VIAL INJ IV SCH (10:17)
[2024-04-01 10:45] LABS: Hematocrit 28.8 % (41.0-53.0); Hemoglobin 8.9 g/dL (13.5-17.5)
[2024-04-01] MEDS: LORazepam 2MG/ML-1ML VIAL IV PRN (15:31)
[2024-04-01] MEDS: MORPHINE SULFATE INJ 2 MG/ml SYRG IV PRN (15:32)
[2024-04-01] MEDS ORDERED: TPN PER PHARMACY IV NR (20:00)
== END 2024-04-01 15:56 | DRG 871 ==
LOC: ER 07:28 → EDBD 07:28 → TELE 15:40 → ICU WEST 03-30 18:30
PROVIDERS: ADMIT Internal Medicine Pulmonary Disease; ATTEND Internal Medicine Pulmonary Disease
PROC: 30233N1 Transfusion of Nonautologous Red Blood Cells into Peripheral Vein, Percutaneous Approach (ICD-10-PCS; 2024-03-29)
PROC: 06HM33Z Insertion of Infusion Device into Right Femoral Vein, Percutaneous Approach (ICD-10-PCS; 2024-03-29)
PROC: B54BZZA Ultrasonography of Right Lower Extremity Veins, Guidance (ICD-10-PCS; 2024-03-29)
PROC: 0BH17EZ Insertion of Endotracheal Airway into Trachea, Via Natural or Artificial Opening (ICD-10-PCS; 2024-03-30)
PROC: 5A1945Z Respiratory Ventilation, 24-96 Consecutive Hours (ICD-10-PCS; 2024-03-30)
PROC: 30233K1 Transfusion of Nonautologous Frozen Plasma into Peripheral Vein, Percutaneous Approach (ICD-10-PCS; principal; 2024-04-01)
PROC: 30233R1 Transfusion of Nonautologous Platelets into Peripheral Vein, Percutaneous Approach (ICD-10-PCS; 2024-04-01)
DX: A41.9 Sepsis, unspecified organism (principal); G93.41 Metabolic encephalopathy; R65.21 Severe sepsis with septic shock; N17.0 Acute kidney failure with tubular necrosis; J96.01 Acute respiratory failure with hypoxia; I50.23 Acute on chronic systolic (congestive) heart failure; M62.82 Rhabdomyolysis; R64 Cachexia; D62 Acute posthemorrhagic anemia; E87.4 Mixed disorder of acid-base balance; Z68.1 Body mass index [BMI] 19.9 or less, adult; D68.9 Coagulation defect, unspecified; I13.0 Hypertensive heart and chronic kidney disease with heart failure and stage 1 through stage 4 chronic kidney disease, or unspecified chronic kidney disease; K92.2 Gastrointestinal hemorrhage, unspecified; N13.30 Unspecified hydronephrosis; R57.0 Cardiogenic shock; Z66 Do not resuscitate; E16.2 Hypoglycemia, unspecified; I46.9 Cardiac arrest, cause unspecified; E83.51 Hypocalcemia; N18.9 Chronic kidney disease, unspecified; R62.7 Adult failure to thrive; I25.10 Atherosclerotic heart disease of native coronary artery without angina pectoris; D50.9 Iron deficiency anemia, unspecified; F10.10 Alcohol abuse, uncomplicated; E87.5 Hyperkalemia; E83.39 Other disorders of phosphorus metabolism; D69.59 Other secondary thrombocytopenia; Z87.891 Personal history of nicotine dependence; Z82.49 Family history of ischemic heart disease and other diseases of the circulatory system; Z79.899 Other long term (current) drug therapy; I25.2 Old myocardial infarction; Z95.1 Presence of aortocoronary bypass graft; Z91.199 Patient's noncompliance with other medical treatment and regimen due to unspecified reason; Y90.9 Presence of alcohol in blood, level not specified
CPT/HCPCS: 36415; 36600; 70450; 71045; 74176; 76705; 76775; 80048; 80053; 80074; 80202; 81001; 82010; 82533; 82805; 82947; 82962; 83540; 83550; 83605; 83735; 83880; 83930; 84100; 84439; 84443; 84478; 84481; 84484; 85007; 85014; 85018; 85025; 85027; 85362; 85384; 85610; 85730; 86850; 86900; 86901; 86920; 87040; 87070; 87077; 87081; 87086; 87186; 87205; 93005; 93306; 94002; 94003; 94640; 96361; 96365; 96366; 96367; 96375; 99291; C9113; G0378; J1815; J2185; J2543; J7060